=== PATIENT | male | born 1955 | race Caucasian/White ===

== ENCOUNTER 2024-11-26 13:18 | Outpatient (CLI) | payer MEDICARE, SELFPAY ==
--- NOTE | ~2024-11-26 | MR_ITS ---
EXAMINATION: MR lumbar spine wo con DATE: 11/26/2024 13:59 INDICATION: Low back pain, unspecified. TECHNIQUE: Magnetic resonance imaging (MRI) of the lumbar spine was performed without intravenous con trast. COMPARISON: Lumbar spine radiographs 11/19/2024 FINDINGS: Alignment is normal. There are changes of posterior fusion procedure from L3 to S1 with ped icle screws. Sensitivity and specificity are decreased at these disc levels due to artifact. Vertebra l body heights are normal. There is moderately decreased disc height at L2-L3. There is interbody fus ion from L3 to S1. The distal spinal cord signal intensity is normal. The conus medullaris is at L1. The following disc levels are specifically discussed: L1-L2: There is a left foraminal extrusion. There is severe bilateral facet joint osteoarthritis. The re is mild left neural foraminal stenosis. There is no central canal stenosis. L2-L3: The disc is bulging. There is severe bilateral facet joint hypertrophy. There is moderate righ t and mild left neural foraminal stenosis. There is moderate central canal stenosis. L3-L4: The disc does not extend beyond the endplate margin. There is no facet joint hypertrophy. Ther e is no neural foraminal stenosis. There is no central canal stenosis. There is posterior decompressi on. L4-L5: The disc does not extend beyond the endplate margin. There is no facet joint hypertrophy. Ther e is no neural foraminal stenosis. There is no central canal stenosis. There is posterior decompressi on. L5-S1: The disc does not extend beyond the endplate margin. There is severe bilateral facet joint hyp ertrophy. There is moderate right and mild left neural foraminal stenosis. There is no central canal stenosis. There is posterior decompression. IMPRESSION: 1. Moderate lumbar spondylosis. 2. Anterior and posterior fusion from L3 to S1. Reviewed, dictated and finalized at location A. [employer]
== END 2024-11-26 13:19 | disposition home or self-care (01) ==
LOC: GOSHIMG 13:18
PROVIDERS: PCP Nurse Practitioner Family; Visit Provider Nurse Practitioner Family
DX: M47.896 Other spondylosis, lumbar region (principal); Z98.1 Arthrodesis status
CPT/HCPCS: 72148

== ENCOUNTER 2025-09-15 07:48 | Outpatient (CLI) | payer MEDICARE, SELFPAY ==
--- NOTE | ~2025-09-15 | US_ITS ---
US abdomen limited Indication: R74.01 - Elevation of levels of liver transaminase levels Comparison: None Technique: Garcia-scale and color Doppler images were obtained. Findings: LIVER: Mild increased echogenicity of the liver. . GALLBLADDER/BILIARY: Unremarkable.No cholelithiais, wall thickening or pericholecystic fluid. No biliary dilatation. CBD 3 mm. [place] sign negative. PANCREAS: Pancreas limited by bowel gas. Right Kidney: Right kidney 12.2 cm, normal. Impression: 1. Mild hepatic steatosis Reviewed, dictated and finalized at location P. [facility] Impression: 1. Mild hepatic steatosis
== END 2025-09-15 07:49 | disposition home or self-care (01) ==
LOC: MICIMG 07:49
PROVIDERS: PCP Nurse Practitioner Family; Visit Provider Nurse Practitioner Family
DX: R74.01 Elevation of levels of liver transaminase levels (principal); K76.0 Fatty (change of) liver, not elsewhere classified
CPT/HCPCS: 76705

== ENCOUNTER 2025-10-24 13:31 | Outpatient (CLI) | payer MEDICARE, SELFPAY ==
--- NOTE | ~2025-10-24 | CT_ITS ---
EXAMINATION: CT abdomen pelvis w con DATE: 10/24/2025 14:08 INDICATION: Abnormal liver function tests. TECHNIQUE: Computed tomography (CT) of the abdomen and pelvis was performed with 100 mL Omnipaque 350 intravenous contrast. Automated exposure control and iterative reconstruction technique were employed. The dose-length product was 1150.95 mGy-cm. COMPARISON: Ultrasound 09/15/2025 FINDINGS: The visualized portions of the lung bases demonstrate mild atelectasis. No pleural effusion. The heart size is normal. 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 There are coronary artery calcifications. No pericardial effusion. The liver and spleen ar e normal. The gallbladder is distended. The pancreas and left adrenal gland are normal. There are dystrophic calcifications in right adrenal gland. Right kidney is normal. There is a 7 mm cyst in left kidney. There are no dilated loops of bowel. The appendix is not visualized. There is a small volume of ascites. There is a 3.5 cm fusiform infrarenal aortic aneurysm. There are no pathologically enlarged lymph nodes. There are bilateral hip arthroplasties. There is osteolysis of the left acetabulum adjacent to the acetabular component. There is a pathologic fracture of left anterior inferior iliac spine. There are changes of posterior fusion procedure from L3 to S1. There is moderate lumbar spondylos is. IMPRESSION: 1. Gallbladder distention, which may be secondary to fasting. Correlate with physical exam to exclude acute cholecystitis. 2. Small volume of ascites. 3. 3.5 cm fusiform infrarenal aortic aneurysm. 4. 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 The osteolysis is suspicious for infection or particle disease. Reviewed, dictated and finalized at location E. [facility] IMPRESSION: 1. Gallbladder distention, which may be secondary to fasting. Correlate with ph ysical exam to exclude acute cholecystitis. 2. Small volume of ascites. 3. 3.5 cm fusiform infrarenal aortic aneurysm. 4. Total left hip arthroplasty with extensive osteolysis adjacent to the acetab ular component with pathologic fracture of left anterior inferior iliac spine. The osteolysis is suspicious for infection or particle disease.
== END 2025-10-24 13:32 | disposition home or self-care (01) ==
LOC: MICIMG 13:32
PROVIDERS: PCP Nurse Practitioner Family; Visit Provider Nurse Practitioner Family
DX: R74.01 Elevation of levels of liver transaminase levels (principal); R18.8 Other ascites; I71.43 Infrarenal abdominal aortic aneurysm, without rupture
CPT/HCPCS: 74177; Q9967